=== PATIENT | female | born 1985 | race Caucasian/White ===

== ENCOUNTER 2017-04-24 15:32 | Outpatient (CLI) | payer OTHER ==
[~2017-04-24] VITALS: Ht 152.4 cm; Wt 39.5 kg
[2017-04-24 14:38] VITALS: BP 98/47; PULSE 63; RESP 16; Ht 152.4 cm; Wt 39.5 kg
--- NOTE | 2017-04-24 15:43 | PN ---
Date/Time of Note Date/Time of Note DATE: 04/24/17 TIME: 15:39 Outpatient Progress Note Chief Complaint Colitis/contracted gallbladder/PUD/seizure disorder HPI Colitis/patient was recently admitted with the acute abdominal pain, patient has colitis, patient was taking medication, patient feels significantly better, able to eat, Contracted gallbladder/no nausea vomiting, no jaundice, no history of any gallstone, PUD/no hematemesis or melena, no nausea vomiting or heartburn, Seizure disorder/patient has no seizure recently, patient has been taking medication for last 2 years, last seizure was 2 years ago, Review of Systems Const: No Fever, no chills, no Wt. loss, no Fatigue, normal appetite, no diaphoresis. Eyes: No pain, no discharge, no redness, no visual change, no foreign body. ENT: No pain, no bleeding, no congestion, no sore throat, no dysphagia, no discharge or rhinitis. Lymph: No adenopathy, no tender nodes, no lymphedema. Resp: No SOB, no cough, no sputum, no wheezing, no chest pain. CV: No chest pain, no palpitaions, no URIBE, no PND, no edema. GI: appetite slowly improving,, no right upper quadrant pain, no nausea, no vomiting, no diarrhea, no blood, no constipation. : No frequency, no urgency, no dysuria, no hematuria, no flank pain, no discharge, no bleeding. Musc: No back pain, no neck pain, no knee pain, no restricted ROM. Skin: No rash, no skin lesions, no erythema, no laceration, no bruising, no pruritus. Neuro: No TRUONG, no dizziness, no syncope, no seizure patient has history of seizure disorder, on medication,, no focal-weakness. Endo: No polyuria, no polydypsia, no dry-skin, no temp-intolerance. Psych: No hallucinations, no depression, no anxiety, no suicidal ideation. Ext: No edema, no pain, no ulcer, no weakness. Physical Exam General Appearance: A 31 year-old female who appears well-developed, well- nourished, in no acute distress. HEENT: Head normocephalic, atraumatic. Pupils equal, round, reactive to light and accommodate. Sclerae are no jaundice. Nasal turbinates pink without erythema or nasal discharge. Mucous membranes pink and moist without lesions. Oropharynx clear without any exudate or discharge. NECK: Supple. Trachea midline, No thyromegaly, No cervical lymphadenopathy, No mass, No carotid bruits, No JVD, Carotid pulses 2+ bilaterally. PULMONARY: Clear to auscultaion bilaterally, No retractions, Chest expansion symmetric bilaterally, no rales, no ronchi, no dulness on percussion. CARDIAC: Normal SI and S2, Regular rate and rythm, no murmur, gallop, or rub. GASTROINTESTINAL: Abdomen is soft, minimal right upper quadrant discomfort,, Non Rigid, No distention, Positive bowel sounds x4 quadrants, Liver normal. SKIN: Warm, dry, no rash, no bruise, no echmosis. EXTREMITIES: Bilateral lower extremities normal, no edema, no phlabitus, pulse palpable, no contracture. MUSCULOSKELETAL: Spine Normal, Non-tender, Normal range of motion, No swelling, no deformity, no clubbing, or cyanosis, the patient has no edema to bilateral lower extremities, dorsalis pedis pulses palpable bilaterally. NEUROLOGIC: The patient is awake, alert, oriented, responding to yes/no questions appropriately, moving all extremities, cranial nerve intact, normal strenght, normal power, normal coordination, normal gait. PMH Colitis/contracted gallbladder/PUD/seizure disorder Social Hx No smoking or drinking, Family Hx Noncontributory, Assessment/Plan Impression Colitis resolving Contracted gallbladder stable PUD improving Seizure disorder stable Plan Patient education done about a bowel disease, patient feeling much comfortable, patient encouraged to eat well, and encouraged to gained few pounds, Seizure precaution, Patient encouraged to follow with the primary care physician, Return to work, HOLLIE BYNUM MD Apr 24, 2017 15:43
[2017-04-24] MEDS ORDERED: OMEP40CA6 PO (15:50)
[2017-04-24] MEDS ORDERED: LAMO200T PO (15:50)
== END 2017-04-24 17:00 | disposition home or self-care (01) ==
LOC: DCC 15:32
PROVIDERS: ATTEND Internal Medicine
DX: K52.9 Noninfective gastroenteritis and colitis, unspecified (principal); K27.9 Peptic ulcer, site unspecified, unspecified as acute or chronic, without hemorrhage or perforation; G40.909 Epilepsy, unspecified, not intractable, without status epilepticus; K82.9 Disease of gallbladder, unspecified